=== PATIENT | male | born 1965 | race Two or more races ===

== ENCOUNTER 2021-09-14 09:41 | Inpatient (IN) | payer OTHER ==
[~2021-09-14] VITALS: Ht 172.7 cm; Wt 89.0 kg
--- NOTE | 2021-09-14 09:44 | NUR ---
DR HORTON AT THE BEDSIDE
--- NOTE | 2021-09-14 09:51 | NUR ---
CALLED TELE MED [employer] TELE NEURO WILL BE DR. OK LANDERS.
[2021-09-14] MEDS ORDERED: IV NS 0.9% 250 ML IV ONE (09:53)
[2021-09-14] MEDS ORDERED: CT SWABBABLE VALVE TRANS SET 1 EA INFUS.SET MC ONE (09:53)
[2021-09-14] MEDS ORDERED: IOHEXOL-350 100 ML VIAL IV ONE ×2 (09:53→10:00)
[2021-09-14 09:59] LABS: BASOPHILS % (AUTO) 0.4 % (0.0-2.0); EOSINOPHILS % (AUTO) 2.7 % (0.0-6.0); HEMATOCRIT 46 % (39-51); HEMOGLOBIN 15.3 g/dL (13.5-17.5); LYMPHOCYTES # (AUTO) 2.3 K/uL (0.8-4.8); LYMPHOCYTES % (AUTO) 36.6 % (20.0-44.0); MEAN CORPUSCULAR HGB CONC 33 g/dl (31.0-36.0); MEAN CORPUSCULAR VOLUME 93 fL (80-96); MONOCYTES # (AUTO) 0.7 K/uL (0.1-1.30); MONOCYTES % (AUTO) 10.7 % (2.0-12.0); NEUTROPHILS # (AUTO) 3.1 K/uL (1.8-8.9); NEUTROPHILS % (AUTO) 49.6 % (43.0-81.0); PLATELET COUNT (AUTO) 163 K/uL (150-450); RED BLOOD CELL COUNT(AUTO) 4.94 MIL/uL (4.5-6.0); WHITE BLOOD COUNT (AUTO) 6.3 K/uL (4.3-11.0)
[2021-09-14 10:07] LABS: CALCIUM, SERUM 9.4 mg/dL (8.5-10.1); CARBON DIOXIDE 28 mmol/L (21-32); CHLORIDE 101 mmol/L (98-107); GLUCOSE 100 mg/dL (74-106); POTASSIUM 3.7 mmol/L (3.5-5.1); SODIUM SERUM 136 mmol/L (136-145); UREA NITROGEN, BLOOD 15 mg/dL (7-18)
--- NOTE | 2021-09-14 10:07 | NUR ---
THE PATIENT IS BACK FROM CT VIA GURNEY PER POLICY
--- NOTE | 2021-09-14 10:08 | NUR ---
DR LANDERS ASSESSING THE PATIENT OVER TELEMEDICINE
--- NOTE | 2021-09-14 10:17 | NUR ---
DR HORTON ON THE PHONE WITH DR LANDERS (NEURO).
--- NOTE | 2021-09-14 10:29 | NUR ---
COVID ANTIGEN SWAB DONE AND SENT TO THE LAB
--- NOTE | 2021-09-14 11:47 | NUR ---
[facility] CALLED CAPACITOR PACK PRESS OPERATOR PAGED.
[2021-09-14] MEDS ORDERED: STATIN (11:58)
[2021-09-14] MEDS ORDERED: ASPIRIN 81 MG TAB.CHEW PO ONE (12:00)
[2021-09-14] MEDS ORDERED: ASPIRIN EC 81 MG TABLET.DR PO ONE (12:16)
[2021-09-14] MEDS ORDERED: ASPIRIN 81 MG TAB.CHEW ONE (12:18)
--- NOTE | 2021-09-14 16:11 | NUR ---
DR GILLILAND AT THE BEDSIDE
--- NOTE | 2021-09-14 17:05 | NUR ---
room 310-2
--- NOTE | 2021-09-14 17:15 | NUR ---
report given to nurse Batista for dell
--- NOTE | 2021-09-14 17:45 | NUR ---
US TECH AT THE BEDSIDE
--- NOTE | 2021-09-14 18:31 | NUR ---
THE PATIENT IS TRANSFERED TO ROOM 310-2 IN STABLE CONDITION OER ACLS POLICY.
--- NOTE | 2021-09-14 19:30 | NUR ---
RN NOTES RECEIVED PATIENT AWAKE ON BED, PATIENT NEEDS TO BE ADMITTED, A/OX4, SR ON TELE MONITOR HR-68, DAUGHTER AT BEDSIDE, DENIES ANY PAIN, NURSING SWALLOW SCREEN DONE, ADMISSION INSTRUCTIONS DONE, CALL LIGHT WITHIN REACH, [id number], WILL CONTINUE TO MONITOR
[2021-09-14 20:00] VITALS: BP 123/74
--- NOTE | 2021-09-14 22:49 | NUR ---
RN NOTES PATIENT WAS COMPLAINING OF BACK PAIN ON HIS BACK, GOT AN ORDER FROM DR. REYES -TYLENOL 650MG PO PRN, ORDER NOTED AND CARRIED OUT
[2021-09-14] MEDS ORDERED: ACETAMINOPHEN 325 MG TABLET PO PRN (23:00)
[2021-09-15] VITALS: BP 113/65
--- NOTE | 2021-09-15 06:40 | NUR ---
RN NOTES AWAKE, DENIES PAIN, NO SOB, CALL LIGHT WITHIN REACH, [id number], PT. NEEDS ATTENDED
[2021-09-15 06:45] LABS: BASOPHILS % (AUTO) 0.7 % (0.0-2.0); EOSINOPHILS % (AUTO) 2.9 % (0.0-6.0); HEMATOCRIT 42 % (39-51); HEMOGLOBIN 14.2 g/dL (13.5-17.5); LYMPHOCYTES # (AUTO) 1.8 K/uL (0.8-4.8); LYMPHOCYTES % (AUTO) 29.1 % (20.0-44.0); MEAN CORPUSCULAR HGB CONC 34 g/dl (31.0-36.0); MEAN CORPUSCULAR VOLUME 92 fL (80-96); MONOCYTES # (AUTO) 0.7 K/uL (0.1-1.30); MONOCYTES % (AUTO) 10.8 % (2.0-12.0); NEUTROPHILS # (AUTO) 3.5 K/uL (1.8-8.9); NEUTROPHILS % (AUTO) 56.5 % (43.0-81.0); PLATELET COUNT (AUTO) 156 K/uL (150-450); WHITE BLOOD COUNT (AUTO) 6.3 K/uL (4.3-11.0)
[2021-09-15 07:14] LABS: CALCIUM, SERUM 9.3 mg/dL (8.5-10.1); CREATININE 1.1 mg/dL (0.6-1.3); POTASSIUM 4.5 mmol/L (3.5-5.1)
--- NOTE | 2021-09-15 07:50 | NUR ---
RN OPENING NOTE PATIENT AWAKE IN BED, A/OX4, SR ON TELE MONITOR HR-70, DENIES PAIN, REHAB AT BEDSIDE NEURO/ STROKE EVAL. CALL LIGHT WITHIN REACH, SIDE RAILS UPX2, WILL CONTINUE TO MONITOR / ASSIST
[2021-09-15 08:33] LABS: THYROID STIMULATING HORMONE 1.858 uIU/mL (0.358-3.74)
[2021-09-15] MEDS ORDERED: ASPIRIN 81 MG TAB.CHEW PO SCH (09:00)
[2021-09-15 09:04] VITALS: BP 138/80
[2021-09-15 11:03] LABS: CHOLESTEROL 169 mg/dL (<200); HDL CHOLESTEROL 48 mg/dL (40-60); LDL 104 mg/dL (0-99); TRIGLYCERIDES 84 mg/dL (30-150)
--- NOTE | 2021-09-15 14:06 | NUR ---
SS Note: SW received consult for TIA. Pt. Is a 56-year-old male who demonstrates adequate insight to the reason for hospitalization. Pt.s daughter Arabella is at bedside. Per EMR, pt. presented in hospital for a transient episode of unresponsiveness. Pt. was oriented x4, alert, and cooperative. During interview, pt. was capable of following directions and appeared unkempt. Pt.s speech was at a normal rate and pt.s mood was elevated. Pt. reported no hx of mental health, substance abuse, suicidal ideation, or homicidal ideation. Pt. denies auditory hallucinations, visual hallucinations, paranoia, or delusions. SW explored pt.s living situation. Per pt., he lives with his [[id number] [place] [id number]]. Per pt., he reports having adequate support from his family. Pt. stated that he was at work and he started to feel dizzy. Pt. reported that it might be due to stress since he has a lot of personal stuff going on at home. Pt. mentioned he does not have a hx of strokes or seizures, and this was the first time something like this happened. Plan: SW provided available resources and pt. accepted. SW assess pt. with the PHG9, and pt. scored a 3. There is no need for a psych consult. Upon discharge, per pt., he will return home with [[id number] [place] [address]]. Resources Provided: Stroke Empowerment Packet.
[2021-09-15] MEDS ORDERED: GADOTERATE MEGLUMINE 10 MMOL/20 ML VIAL IV ONE (15:59)
[2021-09-15] MEDS ORDERED: LEVETIRACETAM (250 MG) 250 MG TABLET PO SCH (16:00)
[2021-09-15 16:15] VITALS: BP 152/83
[2021-09-15] MEDS ORDERED: LEVE250T2 PO (16:33)
[2021-09-15] MEDS ORDERED: ASPI-1169 PO (16:33)
--- NOTE | 2021-09-15 18:15 | NUR ---
RN NOTE- PT DC'D AT THIS TIME TO HOME W FAMILY. AFTERCARE AND DC INSTRUCTIONS REVIEWED AND UNDERSTOOD. VS STABLE, AOX4, ID WRISTBAND AND IV HEPLOCK REMOVED. ESCORTED OFF UNIT BY STAFF.
== END 2021-09-15 18:00 | DRG 101 ==
LOC: ER 09:51 → TELE 18:06
PROVIDERS: ADMIT Student in an Organized Health Care Education/Training Program; ATTEND Student in an Organized Health Care Education/Training Program
DX: R56.9 Unspecified convulsions (principal); E78.5 Hyperlipidemia, unspecified; I10 Essential (primary) hypertension; Z20.822 Contact with and (suspected) exposure to COVID-19; I65.21 Occlusion and stenosis of right carotid artery
CPT/HCPCS: 36415; 70450-TC; 70496-TC; 70498-TC; 70553-TC; 71045-TC; 80048-TC; 80061-TC; 82962-TC; 84443-TC; 84484-TC; 85025-TC; 85730-TC; 87081-TC; 92526; 92611-TC; 93307-TC; 95819-TC; 97530-TC; A9575; C9803; G0378; J7050; Q9967